=== PATIENT | female | born 1990 | race Caucasian/White ===

== ENCOUNTER 2021-03-12 11:57 | Emergency (ER) | payer OTHER, SELFPAY ==
--- NOTE | ~2021-03-12 | US_ITS ---
EXAMINATION: US OB <=14 wk fetus w TV DATE: 03/12/2021 15:57 INDICATION: Vaginal bleeding in . Abdominal pain. TECHNIQUE: Real-time transabdominal and transvaginal pelvic ultrasound was performed. COMPARISON: None. FINDINGS: TRANSABDOMINAL ULTRASOUND: The uterus measures 8.1 x 4.6 x 4.4 cm. TRANSVAGINAL ULTRASOUND: There is no visible intrauterine gestational sac. The endometrial complex me asures 6 mm in thickness. The right ovary measures 4.3 x 3.6 x 2.47 m. The left ovary measures 4.1 x 3.7 x 2.5 cm. There is trace free fluid in the pelvis. IMPRESSION: 1. No visible intrauterine gestational sac, which may be normal in early . Spontaneous abor tion and ectopic are not excluded. Serial beta hCGs are recommended. Reviewed, dictated and finalized at location A. B SPECIALIST IMPRESSION: 1. No visible intrauterine gestational sac, which may be normal in early pregn gladis. Spontaneous and ectopic are not excluded. Serial beta hCGs are recommended.
[2021-03-12 12:08] VITALS: BP 138/95; PULSE 89; RESP 18; TEMP 36.2; O2SAT 100
--- NOTE | 2021-03-12 13:59 | ED.GENADULT ---
HPI - General Adult General Chief complaint: Vaginal Bleeding Stated complaint: preg, bleeding and cramping Time Seen by Provider: 03/12/21 13:14 Source: patient Mode of arrival: ambulatory Limitations: no limitations History of Present Illness HPI narrative: Patient presents for evaluation of pelvic pain and vaginal bleeding. Symptom onset 6 days ago. She states bleeding has been very minimal, not enough to even notice on the pad or in her underwear. Really notices blood on the tissue when wiping after urination but is certain that it is coming from her vaginal vault as opposed to her urethra. She took a test today while at work which was positive. LMP around 02/05/21. She has noted urinary frequency and concentrated appearance to her urine without other urinary symptoms. No fever, chills, nausea, vomiting. Blood type verified as O positive within her chart here. Related Data Allergies Allergy/AdvReac Type Severity Reaction Status Date / Time clarithromycin Allergy Unknown Unknown Verified 03/12/21 15:03 peanut Allergy Unknown ORAL Verified 03/12/21 15:03 SWELLING AND FEELING LOOPY Review of Systems Review of Systems: CONSTITUTIONAL: Denies fever, chills, or sweats. EYES: Denies visual changes, redness, or discharge. ENT: Denies rhinorrhea, congestion, sore throat, or otalgia. CARDIOVASCULAR: Denies chest pain, palpitations, or edema. RESPIRATORY: Denies cough or dyspnea. GASTROINTESTINAL: Denies abdominal pain, nausea, vomiting, or diarrhea. GENITOURINARY: Reports vaginal bleeding. Reports urinary frequency and concentrated appearance of urine without dysuria SKIN: Denies rash or itching. MUSCULOSKELETAL: Denies back pain, joint pain, or myalgia. NEUROLOGIC: Denies headache, numbness, dizziness, or weakness. PSYCHIATRIC: Denies anxiety or depression. [facility] Past Medical History Medical History (Updated 03/12/21 @ 16:32 by Bolivar Phillips, FREDERICK, ) Asthma Eczema Surgical History Surgical History No pertinent past surgical history Family History Family History Grandparent Family history of endocrine disorder Father Suicide Social History Social History (Updated 03/12/21 @ 14:16 by Bolivar Phillips, [facility], [place] Smoking status: Light tobacco smoker Second hand tobacco smoke exposure: No Alcohol intake: current Alcohol use details: a few shots at home on irregular basis Living arrangements: with family Additional living arrangements comments: Lives with boyfriend 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 HEAD: Normocephalic, atraumatic. EYES: PERRLA and EOMI. ENT: Nares clear, no rhinorrhea or epistaxis. Mucous membranes moist. Oropharynx without tonsillar hypertrophy exudate or other lesions. Bilateral TMs pearly quevedo nonbulging NECK: Supple. No adenopathy or masses. No carotid bruits or JVD CHEST: Clear to auscultation. No respiratory distress. No wheezes rales or rhonchi HEART: Regular rate and rhythm. No murmur heard. Normal peripheral pulses. ABDOMEN: Soft, nontender, nondistended, normal active bowel sounds. GENITAL: No external genital lesions. No adnexal tenderness. No CMT. Small amount of bloody drainage in vaginal vault. I am not able to fully visualize cervical os as her vaginal bertrand collapse around speculum. EXTREMITIES: Normal range of motion. No edema. SKIN: Warm, dry, no rash. NEURO: No focal deficits. Alert and oriented x3. PSYCH: Normal mood and affect. Course Course Emergency Course: This is a 30-year-old female who pres
[2021-03-12 15:05] LABS: Add Urine Microscopic? YES; Appearance Urine Clear (Clear); Bilirubin Urine Negative (Negative); Blood Urine 1+ (Negative); Color Urine Straw (Yellow); Glucose Urine UA Negative (Negative); Ketones Urine Trace mg/dL (Negative); Leukocyte Esterase Ur Negative LEU/UL (Negative); Mucus Urine Rare /lpf; Nitrate Urine Negative (Negative); Protein Urine Negative (Negative); RBC Urine 0-2 /hpf (0-2); Squamous Epithelial Cell Urine Occasional /hpf (Few); Urobilinogen Urine Negative mg/dL (<2.0); WBC Urine 0-3 /hpf
[2021-03-12] MEDS: LACTATED RINGERS 1,000 ML 999 ML IV CONT (15:06)
[2021-03-12 15:13] LABS: Basophils Absolute Auto 0.1 K/mm3 (0.0-0.1); Basophils Percent Auto 0.6 % (0.2-1.2); Eosinophils Absolute Auto 0.1 K/mm3 (0-0.3); Eosinophils Percent Auto 1.7 % (0-4.4); Hematocrit 40.3 % (37.0-47.0); Hemoglobin 13.6 g/dL (12.0-15.0); Immature Granulocyte Absolute 0.03 K/mm3 (0.00-0.031); Immature Granulocyte Percent A 0.4 % (0-0.5); Lymphocytes Absolute Auto 2.06 K/mm3 (0.9-3.2); Lymphocytes Percent Auto 26.5 % (18.3-44.2); Mean Corpuscular HGB Conc 33.7 g/dl (32-36); Mean Platelet Volume 10.8 fl (7.4-10.4); Monocytes Absolute Auto 0.4 K/mm3 (0.1-0.6); Monocytes Percent Auto 5.1 % (2.6-8.5); Neutrophils Absolute Auto 5.1 K/mm3 (1.3-6.7); Neutrophils Percent Auto 65.7 % (45.5-73.1); Platelet Count Result 177 k/mm3 (150-375); Red Blood Count 4.53 M/mm3 (4.2-5.4); Red Cell Distribution Width 12.8 % (11.5-14.5); White Blood Count 7.8 K/mm3 (4.5-10.0)
[2021-03-12 15:17] LABS: Specific Grav Ur 1.004 (1.001-1.035)
[2021-03-12 15:23] LABS: Alanine Aminotransferase 13 U/L (4-35); Albumin Level 4.7 g/dL (3.5-5.1); Alkaline Phosphatase 60 U/L (38-126); Anion Gap 10 mmol/L (8-16); Aspartate Amino Transferase 18 U/L (14-36); Bilirubin,Total 0.6 mg/dL (0.2-1.3); Blood Urea Nitrogen 7 mg/dL (7-17); Calcium 9.2 mg/dL (8.4-10.2); Carbon Dioxide 23 mmol/L (22-30); Chloride 103 mmol/L (98-107); Estimated CRCL calculation 103 ml/min; Estimated Glomerular Filt Rate > 60; Glucose 90 mg/dL (65-110); Lipase 57 U/L (23-300); Potassium 3.7 mmol/L (3.4-5.0); Sodium 136 mmol/L (137-145)
[2021-03-12 16:42] VITALS: BP 132/85; PULSE 80; RESP 16; O2SAT 97
== END 2021-03-12 16:47 | disposition home or self-care (01) ==
PROVIDERS: Emergency Provider Nurse Practitioner; PCP Family Medicine
DX: O20.0 Threatened abortion (principal); Z3A.00 Weeks of gestation of pregnancy not specified
CPT/HCPCS: 36415; 76801; 76817; 80053; 81001; 81025; 83690; 84702; 85025; 87070; 87491; 87591; 87808; 96360; 99284; J7120

== ENCOUNTER 2023-04-05 06:25 | Emergency (ER) | payer OTHER, SELFPAY ==
[2023-04-05] VITALS (18 sets, daily range): BP systolic 95–125; BP diastolic 66–95; PULSE 62–106; RESP 7–23; TEMP 36.7–36.8; O2SAT 97–100
[2023-04-05] MEDS: ONDANSETRON INJ 4 MG/2 ML VIAL (07:03)
[2023-04-05 07:07] LABS: Basophils Percent Auto 0.2 % (0.2-1.2); Eosinophils Absolute Auto 0.1 K/mm3 (0-0.3); Hematocrit 41.7 % (37.0-47.0); Immature Granulocyte Absolute 0.05 K/mm3 (0.00-0.031); Immature Granulocyte Percent A 0.5 % (0-0.5); Lymphocytes Absolute Auto 1.32 K/mm3 (0.9-3.2); Lymphocytes Percent Auto 14.4 % (18.3-44.2); Mean Corpuscular HGB Conc 33.6 g/dl (32-36); Mean Corpuscular Hemoglobin 28.9 pg (26-34); Mean Platelet Volume 10.8 fl (7.4-10.4); Monocytes Absolute Auto 0.4 K/mm3 (0.1-0.6); Monocytes Percent Auto 4.8 % (2.6-8.5); Neutrophils Absolute Auto 7.2 K/mm3 (1.3-6.7); Neutrophils Percent Auto 79.1 % (45.5-73.1); Platelet Count Result 206 k/mm3 (150-375); Red Blood Count 4.85 M/mm3 (4.2-5.4); Red Cell Distribution Width 12.9 % (11.5-14.5); White Blood Count 9.2 K/mm3 (4.5-10.0)
[2023-04-05 07:17] LABS: Alanine Aminotransferase 20 U/L (6-35); Albumin Level 4.3 g/dL (3.5-5.1); Alkaline Phosphatase 70 U/L (38-126); Anion Gap 13 mmol/L (8-16); Aspartate Amino Transferase 21 U/L (14-36); Bilirubin,Total 0.9 mg/dL (0.2-1.3); Blood Urea Nitrogen 13 mg/dL (7-17); Calcium 9.3 mg/dL (8.4-10.2); Carbon Dioxide 15 mmol/L (22-30); Chloride 108 mmol/L (98-107); Estimated CRCL calculation 139 ml/min; Estimated Glomerular Filt Rate > 60; Glucose 98 mg/dL (65-110); Potassium 3.7 mmol/L (3.4-5.0); Sodium 136 mmol/L (137-145)
--- NOTE | 2023-04-05 07:32 | ED.GENADULT ---
HPI - General Adult General Chief complaint: Nausea/Vomiting/Diarrhea Stated complaint: vomiting, 11 weeks Time Seen by Provider: 04/05/23 06:56 History of Present Illness HPI narrative: 32-year-old female that is approximately [address] Palacios. The patient states this is her 2nd . Patient reports she did have some nausea and vomiting with her 1st . Patient states over the last few days the nausea vomiting has significantly worsened. Patient did not have any Zofran at home. Patient states when she has the emesis she does have epigastric burning the patient denies any abdominal pain. Patient denies any vaginal bleeding vaginal discharge or uterine cramping. Related Data Allergies Allergy/AdvReac Type Severity Reaction Status Date / Time clarithromycin Allergy Unknown Unknown Verified 04/05/23 06:46 peanut Allergy Unknown ORAL Verified 04/05/23 06:46 SWELLING AND FEELING LOOPY Review of Systems Review of Systems: All systems reviewed & are unremarkable except as noted in HPI and below PMFSH Past Medical History Medical History (Updated 04/05/23 @ 10:11 by Manuel Barrientos MD) Asthma Eczema Surgical History Surgical History No pertinent past surgical history Family History Family History Grandparent Family history of endocrine disorder Father Suicide Social History Social History (Updated 03/12/21 @ 14:16 by Bolivar Phillips [facility], ) Smoking status: Light tobacco smoker Second hand tobacco smoke exposure: No Alcohol intake: current Alcohol use details: a few shots at home on irregular basis Living arrangements: with family Additional living arrangements comments: Lives with boyfriend 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 HEAD: normocephalic, atraumatic. EYES: PERRLA/EOMI, conjunctivae clear. NOSE: Normal no drainage NECK: Supple. No adenopathy, no masses. RESPIRATORY: Airway patent, respirations nonlabored. Clear to auscultation bilaterally, no rales, rhonchi, wheezing. CARDIOVASCULAR: Regular rate and rhythm without murmurs rubs or gallops. ABDOMINAL: Soft, nontender, nondistended, normal bowel sounds MUSCULOSKELETAL: Moves all extremities. Strength/ROM intact, No edema, No calf tenderness. NEURO: Alert. Cranial nerves II through XII intact. Grossly intact SKIN: Warm, dry. Normal Color Course Course Emergency Course: 32-year-old female presenting to the emergency department for evaluation of persistent nausea and vomiting. Patient does feel improved with treatment. Patient is afebrile with no leukocytosis and a stable hemoglobin. No significant abnormalities on her CMP, UA did have trace leuk esterase but patient denies any pain with urination, urine culture is pending. Patient was negative for influenza RSV and for COVID. Patient was advised to follow a clear liquid diet patient was provided Zofran for nausea control at home. Patient was encouraged to have close follow-up with her OB Gyne. All questions concerns were addressed patient was well-appearing at time of discharge. Vital Signs Vital signs: Vital Signs Temperature 98.2 F 04/05/23 06:43 Pulse Rate 106 H 04/05/23 06:43 Respiratory Rate 20 04/05/23 06:43 Blood Pressure 125/95 H 04/05/23 06:43 Pulse Oximetry 98 04/05/23 06:43 Oxygen Delivery Room Air 04/05/23 06:43 Temperature 98.0 F 04/05/23 07:30 Pulse Rate 78 04/05/23 10:15 Respiratory Rate 13 04/05/23 10:15 Blood Pressure 124/66 04/05/23 10:
[2023-04-05 07:42] LABS: Influenza A QL RT-PCR Negative (Negative); Influenza B QL RT-PCR Negative (Negative); RSV RNA, RT-PCR Negative (Negative); SARS-CoV-2 RNA PCR Negative (Negative)
[2023-04-05] MEDS: SODIUM CHLORIDE 0.9% IV 1,000 ML 999 ML IV CONT ×2 (08:11→08:12)
[2023-04-05] MEDS: METOCLOPRAMIDE HCL INJ 10 MG/2 ML VIAL IV PUSH (08:11)
[2023-04-05 09:57] LABS: Appearance Urine Clear (Clear); Bacteria Urine None Seen /hpf; Bilirubin Urine 1+ (Negative); Blood Urine Negative (Negative); Color Urine Dark Yellow (Yellow); Glucose Urine UA Negative (Negative); Ketones Urine 4+ mg/dL (Negative); Leukocyte Esterase Ur Trace LEU/UL (Negative); Nitrate Urine Negative (Negative); Non Pathogenic Casts 0-2; Protein Urine 1+ mg/dL (Negative); RBC Urine 0-2 /hpf (0-2); Squamous Epithelial Cell Urine None seen /hpf (Few); WBC Urine 0-5 /hpf; pH Urine 5.5 (5.0-9.0)
[2023-04-05 10:01] LABS: Add Urine Microscopic? YES; Specific Grav Ur 1.038 (1.001-1.035)
== END 2023-04-05 10:36 | disposition home or self-care (01) ==
PROVIDERS: Emergency Provider Emergency Medicine; PCP Family Medicine
DX: O21.9 Vomiting of pregnancy, unspecified (principal); Z20.822 Contact with and (suspected) exposure to COVID-19; O99.511 Diseases of the respiratory system complicating pregnancy, first trimester; J45.909 Unspecified asthma, uncomplicated; O99.331 Smoking (tobacco) complicating pregnancy, first trimester; F17.200 Nicotine dependence, unspecified, uncomplicated; Z3A.11 11 weeks gestation of pregnancy
CPT/HCPCS: 36415; 80053; 81001; 85025; 87637; 96361; 96374; 96375; 99284; J2405; J2765; J7030

== ENCOUNTER 2023-10-15 20:25 | Observation (INO) | payer OTHER, SELFPAY ==
--- NOTE | 2023-10-16 06:49 | PM.OBTRLD ---
OB - Triage/Final Diagnosis Visit Information Date of evaluation: 10/15/23 Reason for evaluation: threatened labor Comments/Additional reasons for admission: I have assessed the risk for this patient, Rianna Huang Radhazayra, and determined that she would benefit from observation care.
== END 2023-10-15 23:54 | disposition home or self-care (01) ==
PROVIDERS: Admitting Provider Obstetrics & Gynecology; Visit Provider Obstetrics & Gynecology
DX: O47.1 False labor at or after 37 completed weeks of gestation (principal); Z3A.39 39 weeks gestation of pregnancy
CPT/HCPCS: G0378; G0379

== ENCOUNTER 2023-10-17 05:04 | Inpatient (IN) | payer OTHER, SELFPAY ==
[2023-10-17] VITALS (79 sets, daily range): BP systolic 65–140; BP diastolic 40–93; PULSE 58–176; RESP 16–18; TEMP 36.6–36.8; O2SAT 79–100; BMI 37.3
[2023-10-17 06:08] LABS: Basophils Absolute Auto 0.1 K/mm3 (0.0-0.1); Basophils Percent Auto 0.6 % (0.2-1.2); Eosinophils Absolute Auto 0.1 K/mm3 (0-0.3); Hematocrit 35.8 % (37.0-47.0); Hemoglobin 11.6 g/dL (12.0-15.0); Immature Granulocyte Absolute 0.22 K/mm3 (0.00-0.031); Immature Granulocyte Percent A 2.2 % (0-0.5); Lymphocytes Absolute Auto 1.81 K/mm3 (0.9-3.2); Lymphocytes Percent Auto 18.2 % (18.3-44.2); Mean Corpuscular HGB Conc 32.4 g/dl (32-36); Mean Corpuscular Hemoglobin 28.5 pg (26-34); Mean Platelet Volume 12.1 fl (7.4-10.4); Monocytes Absolute Auto 0.6 K/mm3 (0.1-0.6); Monocytes Percent Auto 5.9 % (2.6-8.5); Neutrophils Absolute Auto 7.2 K/mm3 (1.3-6.7); Neutrophils Percent Auto 72.1 % (45.5-73.1); Platelet Count Result 157 k/mm3 (150-375); Red Blood Count 4.07 M/mm3 (4.2-5.4); Red Cell Distribution Width 13.4 % (11.5-14.5); White Blood Count 9.9 K/mm3 (4.5-10.0)
--- NOTE | 2023-10-17 06:29 | LDADM ---
This patient, Rianna Peterson, was admitted to Labor/Delivery/Recovery 104 on 10/17/23 at 05:04. Plans for labor, pain management and were discussed with patient. Patient/family oriented to hospital policies and general routines including ID bracelet, bed and alarms, visiting hours, pain management, procedures, bathroom and other care routines, personal items, smoking policy, room service/diet and guest tray routines, security routines, and visiting hours. Patient/Family are encouraged to report perceived risks to care and to ask questions if they do not understand what they are told or what they should do. See OBIX for further documentation.
[2023-10-17] MEDS: LACTATED RINGERS 1,000 ML 125 ML IV CONT ×2 (06:40→08:46)
[2023-10-17] MEDS: OXYTOCIN 30 UNITS/NS 500 ML 30 UNITS/500 ML BAG IV CONT (06:40)
[2023-10-17 07:00] LABS: HIV 1/2 Ab P24 Ag Result Negative (Negative)
--- NOTE | 2023-10-17 08:12 | WPDOBADMIT ---
Obstetrics - Admit Note Admission Note: record reviewed. Additions to the history and/or subsequent changes in the physical findings follow. 33 y/o at 39 2/7 weeks here for elective induction of labor. GBS neg. Starting to feel some contractions. AVSS NST reactive TOCO: contractions irregularly ABD soft, nontender, gravid, vertex EXT nontender Cervix 4/80/-2 AROM with clear fluid. Vertex A: IUP at term with favorable cervix, desiring induction of labor. P: Oxytocin. Anticipate .
[2023-10-17 09:39] LABS: Amphetamine Screen Urine Negative (Negative); Barbiturate Screen Urine Negative (Negative); Benzodiazepines Screen Urine Negative (Negative); Cannabinoid Screen Urine Positive (Negative); Cocaine Screen Urine Negative (Negative); Methadone Screen Urine Negative (Negative); Opiate Screen Urine Negative (Negative); Phencyclidine Screen Urine Negative (Negative)
[2023-10-17] MEDS: CALCIUM CARBONATE (TUMS) 500 MG (200 MG ELEMENTAL) PO ×2 (10:21→21:28)
--- NOTE | 2023-10-17 12:20 | PM.OBPRVD ---
OB - Vaginal Delivery Note Procedure Delivery date: 10/17/23 Induction method: Per Pitocin Protocol Delivery augmentation: Rupture of Membranes Delivery monitor: External FHT and External Uterine Route of delivery: Episiotomy description: None Laceration Description: Periurethral (right) and Perineal - 2nd Degree Delivery repair: vicryl (3-0) Specimen: Yes (cord blood) Quantitative Blood Loss (ml): 220 Anesthesia type: Epidural Disposition: PACU Complications: None Narrative: 33 y/o at 39 2/7 weeks gestation who presented to the hospital for induction of labor. Oxytocin was administered intravenously. Amniotomy was performed with return of clear fluid. She received an epidural for pain control. Her labor progressed and her cervix dilated completely. She pushed with good effort and delivered the 's head to the perineum, followed by the body. The nose and mouth were bulb suctioned. After a delay, the cord was clamped and cut. The infant was handed off the field. Cord blood was collected. The placenta delivered spontaneously and was grossly normal in appearance. The usual 3 vessel cord was noted. A second degree midline perineal laceration was sustained. This was reapproximated using 3 0 Vicryl in the usual layered fashion. A right sided periurethral laceration was reapproximated with a single figure of eight suture of the same material. Excellent hemostasis resulted as did excellent reapproximation of the normal anatomy. Needle and instrument counts were correct. The patient was taken to recovery room in stable condition. The infant went to the nursery in stable condition. I was present and scrubbed for the entire delivery. Stanley Baby Date of : 10/17/23 Time of : 12:00 Weeks of gestation at delivery: 39 gender: Male Weight (pounds): 8 Weight (ounces): 13 presentation: vertex position: Right Occiput Anterior Placenta delivery description: Spontaneous and Normal Configuration Cord Vessel Description: 3 Vessels and Delayed Cord Clamping score one minute: 8 score five minutes: 9
--- NOTE | 2023-10-17 12:21 | PM.OBDSVD ---
DS: Admitting Diagnosis Discharge Date 10/18/23 Admitting Diagnosis IUP at 39 2/7 weeks DS: Discharge Diagnosis Discharge Diagnosis (1) (normal spontaneous vaginal delivery): Code(s): O80 - Encounter for full-term uncomplicated delivery Status: Acute OB - DS: Summary OB Procedures : None OB Procedures Intrapartum: Spontaneous Vag Delivery OB Procedures: : Rubella lg Peripartum Data Laceration Description: Periurethral (right) and Perineal - 2nd Degree Episiotomy description: None Time Spent with Patient Time attestation: Total time spent providing and/or coordinating discharge services: DS: Data Data Completed and Pending Labs on day of discharge: Labs from last 24 hours 10/17/23 10/17/23 09:08 05:27 WBC 9.9 RBC 4.07 L Hgb 11.6 L Hct 35.8 L MCV 88.0 MCH 28.5 MCHC 32.4 RDW 13.4 Plt Count 157 MPV 12.1 H Immature Gran % (Auto) 2.2 H Neut % (Auto) 72.1 Lymph % (Auto) 18.2 L Beaver % (Auto) 5.9 Eos % (Auto) 1.0 Baso % (Auto) 0.6 Lymph # (Auto) 1.81 Beaver # (Auto) 0.6 Eos # (Auto) 0.1 Baso # (Auto) 0.1 Abs Immat Gran (auto) 0.22 H Absolute Neuts (auto) 7.2 H Absolute Nucleated RBC 0.000 Nucleated RBC % 0.0 Urine Opiates Screen Negative Urine Methadone Screen Negative Ur Barbiturates Screen Negative Ur Phencyclidine Scrn Negative Ur Amphetamine Screen Negative U Benzodiazepines Scrn Negative Urine Cocaine Screen Negative U Cannabinoids Screen Positive A RPR Pending HIV 1&2 Ab/P24 Ag 4thGn Negative Blood Type O Positive Antibody Screen Negative Discharge Plan Discharge Attending physician on discharge: Raul Caal Discharging Clinician: Raul Caal Patient Disposition: Home, Self-Care Activity: pelvic rest Diet: regular Discharge Instructions: Call or return if temperature above 100.4? F, increased abdominal pain, increased vaginal bleeding or any new problems. Education: Mom and Baby Guide Given to: Mother Follow-Up: Call your delivering provider's office for an appointment to be seen in: 6 Weeks Mom and baby should come to the [facility] for the follow-up appointment. Appointment Date/Time: October 19, 2023 at 12:30 pm What to expect at your follow-up visit: Physical Assessment Call [phone] if you are unable to keep your appointment time. BREAST CARE: * Wear a snug supportive bra. * For engorgement discomfort: Breast Feeding: * Apply warm moist washcloths * Express milk as needed to relieve engorgement * Wear loose clothing * For sore nipples: * Identify correct latch-on * Apply warm moist washcloths before and after nursing * Air dry nipples after nursing * May apply Lansinoh cream to nipples PERINEAL CARE: * Until bleeding stops, use your guanakito bottle after urinating * Change your pad frequently throughout the day * You may take sitz baths several times a day (fill your bathtub with warm water and soak for 20 minutes.) Do NOT bathe in the water * No tub baths until seen by your physician - You may shower ACTIVITY: * Rest as much as possible. * Do not exercise or lift anything heavier than your baby (such as laundry or other children.) * Avoid stairs or driving as much as possible. * Do not put anything into the vagina. No douching, tampons, or sexual activity until seen by physician. NOTIFY PHYSICIAN IF YOU HAVE ANY QUESTIONS OR IF ANY OF THE FOLLOWING SYMPTOMS OCCUR: * If your perineum becomes red, swollen, or more painful than what you have experienced in the hospital. * If your vaginal bleeding becomes foul smelling. * If your vaginal bleeding becomes more heavy than a period or if your bleeding changes from pink to bright red. However, you may pass an occasional walnut-sized clot once or twice for the first week . * If you experience a sharp, shooting pain in
[2023-10-17] MEDS: OXYTOCIN 30 UNITS/NS 500 ML 30 UNITS/500 ML BAG 125 UNITS IV CONT (12:33)
[2023-10-17 13:53] LABS: Rapid Plasma Reagin Non-Reactive (NonReactive)
--- NOTE | 2023-10-17 14:08 | WPDANESEPPF ---
Anes - Initial Pre Proc Eval Procedure: labor epidural Date/Time: 10/17/23 14:08 Surgeon: Raul Caal MD Pre Op Diagnosis: labor pain Pre Op Diagnosis: IOL Patient Data Age: 33 Gender: F Height: 1.68 m Weight: 105 kg Last Vital Signs Temp 36.8 C 10/17/23 11:50 Pulse 176 H 10/17/23 12:16 Resp 16 10/17/23 11:50 BP 65/40 L 10/17/23 12:16 Pulse Ox 100 10/17/23 11:51 O2 Del Method Room Air 10/17/23 06:28 Allergies Allergy/AdvReac Type Severity Reaction Status Date / Time clarithromycin Allergy Unknown Rash Verified 10/03/23 12:37 peanut Allergy Unknown ORAL Verified 10/03/23 12:37 SWELLING AND FEELING LOOPY Home Medications Medication Instructions Recorded Confirmed Type ondansetron 4 mg disintegrating 4 mg PO Q8H PRN nausea and 04/05/23 Rx tablet vomiting #20 tabs albuterol sulfate 90 mcg/actuation 2 puff inhalation QID PRN Wheezing 10/03/23 10/03/23 History aerosol inhaler prenat.vits,oksana,qoj-owhm-vuagm 1 tablet 10/03/23 History ibuprofen 600 mg tablet 600 mg PO Q6H PRN cramps #30 tabs 10/17/23 Rx Laboratory Tests 10/17/23 10/17/23 05:27 09:08 WBC 9.9 K/mm3 (4.5-10.0) RBC 4.07 L M/mm3 (4.2-5.4) Hgb 11.6 L g/dL (12.0-15.0) Hct 35.8 L % (37.0-47.0) MCV 88.0 fl (80-100) MCH 28.5 pg (26-34) MCHC 32.4 g/dl (32-36) RDW 13.4 % (11.5-14.5) Plt Count 157 k/mm3 (150-375) MPV 12.1 H fl (7.4-10.4) Immature Gran % (Auto) 2.2 H % (0-0.5) Neut % (Auto) 72.1 % (45.5-73.1) Lymph % (Auto) 18.2 L % (18.3-44.2) Rock % (Auto) 5.9 % (2.6-8.5) Eos % (Auto) 1.0 % (0-4.4) Baso % (Auto) 0.6 % (0.2-1.2) Lymph # (Auto) 1.81 K/mm3 (0.9-3.2) Rock # (Auto) 0.6 K/mm3 (0.1-0.6) Eos # (Auto) 0.1 K/mm3 (0-0.3) Baso # (Auto) 0.1 K/mm3 (0.0-0.1) Abs Immat Gran (auto) 0.22 H K/mm3 (0.00-0.031) Absolute Neuts (auto) 7.2 H K/mm3 (1.3-6.7) Absolute Nucleated RBC 0.000 K/mm3 (0.0-0.012) Nucleated RBC % 0.0 % (0.0-0.2) Urine Opiates Screen Negative (Negative) Urine Methadone Screen Negative (Negative) Ur Barbiturates Screen Negative (Negative) Ur Phencyclidine Scrn Negative (Negative) Ur Amphetamine Screen Negative (Negative) U Benzodiazepines Scrn Negative (Negative) Urine Cocaine Screen Negative (Negative) U Cannabinoids Screen Positive A (Negative) RPR Non-reactive (NonReactive) HIV 1&2 Ab/P24 Ag 4thGn Negative (Negative) Blood Type O Positive Antibody Screen Negative Patient hx anesthesia problems: none Family hx anesthesia problems: none Results Review: All pre-operative results and documents have been reviewed as part of the pre-operative evaluation. [facility] Past Medical History Medical History (Updated 10/17/23 @ 12:22 by Raul Caal MD) Asthma Eczema Surgical History Surgical History No pertinent past surgical history Family History Family History Grandparent Family history of endocrine disorder Father Suicide Social History Social History (Updated 03/12/21 @ 14:16 by FREDERICK Bermudez, ) Smoking status: Former smoker Tobacco type: cigarettes Second hand tobacco smoke exposure: No Alcohol intake: current Alcohol use details: a few shots at home on irregular basis Substance use: never Do You Feel Safe in your Home?: Yes Lack of Transportation: No Lack of Food: Never True Current Housing: I Have Housing Concerned About Future Housing: No Difficulty Paying Gas/Electric Bills: No Difficulty Paying for Meds: No Currently Unemployed: No Education: [place]
[2023-10-17] MEDS: IBUPROFEN 600 MG TABLET PO (19:12)
[2023-10-18 04:30] VITALS: BP 120/73; PULSE 76; RESP 18; TEMP 36.9; O2SAT 100
[2023-10-18 06:47] LABS: Hematocrit 33.3 % (37.0-47.0); Hemoglobin 10.9 g/dL (12.0-15.0)
--- NOTE | 2023-10-18 07:58 | WPDANLDPN2 ---
Anes-Prog Note L&D Date/Time: 10/18/23 07:58 Comfortable throughout: labor and delivery Neuraxial method: epidural Epidural/Spinal procedure site: tender Neuro status: Neuro function grossly intact. Cardiovascular status: normal Respiratory status: normal Airway patency: baseline Mental status: baseline Post-Op hydration status: normal Vital Signs: Last Vital Signs Temp 36.9 C 10/18/23 04:30 Pulse 76 10/18/23 04:30 Resp 18 10/18/23 04:30 BP 120/73 10/18/23 04:30 Pulse Ox 100 10/18/23 04:30 O2 Del Method Room Air 10/17/23 19:15 Pain score (VAS): 3/10 I/O: Intake & Output 10/17/23 10/17/23 10/18/23 15:59 23:59 07:59 Intake Total 1000 500 Output Total 220 Balance 780 500 Post-procedural complaints: none Patient feedback: Patient satisfied with anesthetic care.
[2023-10-18 08:00] VITALS: BP 113/61; PULSE 90; RESP 16; TEMP 36.6; O2SAT 100
--- NOTE | 2023-10-18 08:32 | PM.OBPNVD ---
OB - PN: Subj Subjective Date/time seen: 10/18/23 08:32 Patient comments: no complaints and pain well controlled baby status: doing well OB - PN: Obj Data Labs 10/18/23 06:42 Labs: Laboratory Results - last 24 hr 10/17/23 10/17/23 10/18/23 05:27 09:08 06:42 Hgb 10.9 L Hct 33.3 L Urine Opiates Screen Negative Urine Methadone Screen Negative Ur Barbiturates Screen Negative Ur Phencyclidine Scrn Negative Ur Amphetamine Screen Negative U Benzodiazepines Scrn Negative Urine Cocaine Screen Negative U Cannabinoids Screen Positive A RPR Non-reactive OB - PN A/P Plan day: 1 Plan: routine care Time Spent With Patient Time: Total time spent is greater than 50% in coordination of care (as documented) at patient's floor/unit and/or counseling patient: Time with patient: less than 15 minutes Exam Const: General: cooperative, healthy appearing and comfortable Orientation/consciousness: oriented to person, oriented to place and oriented to time Resp: Effort & Inspection: normal respiratory effort Cardio: Rate: regular rate Rhythm: regular rhythm Heart sounds: S1 normal heart sound present and S2 normal heart sound present GI: Inspection: normal to inspection
[2023-10-18] MEDS: IBUPROFEN 600 MG TABLET PO (09:43)
[2023-10-18] MEDS: MULTIVIT/MIN/PREN/FOL AC/IRON TABLET 1 TAB PO (09:43)
[2023-10-18] MEDS: TETANUS,DIPHTHERIA,AC PERTUSSIS ADULT (0.5 ML) BOOSTRIX IM (09:47)
[2023-10-18] MEDS: DIBUCAINE 1% OINTMENT 30 GM TUBE 1 APPLIC TOPICAL (09:47)
--- NOTE | 2023-10-18 11:10 | PC.NURSE ---
Mother verbalizes she is able to independently latch with appropriate positioning and alignment. She denies any nipple discomfort and is responsively . Infant is currently meeting outcomes for weight, output, jaundice, blood sugar and feeding frequencies of 8-12 times in 24 hours. Mother declines any additional assistance or education at this time but will call out for a latch check today. Mother is encouraged to call for assistance if her doesn?t latch, pain with latching, questions or concerns. Mother voiced understanding of information shared along with the mom/baby guide for an additional resource. Reported to the Primary RN.
[2023-10-18] MEDS: MEASLES,MUMPS,RUBELLA VACCINE 0.5 ML VIAL SUB-Q (14:30)
--- NOTE | 2023-10-18 15:30 | PC.NURSE ---
Observed patient . Infant was sleepy but easy to arouse. Mother latched infant to the right breast in cradle hold. was suckling consistently and mother had no pain with the latch. Mother is comfortable to go home . She doesn't have any additional needs or questions at this time. She has the mom baby guide for reference at home. Reported to Primary RN.
[2023-10-19 12:58] VITALS: BP 112/65; PULSE 97; RESP 18; TEMP 37.3; O2SAT 100
== END 2023-10-18 18:00 | disposition home or self-care (01) | DRG 560 ==
LOC: ANHLDR 12:22 → ANHOB2 10-18 14:21 → ANHLDR 10-21 08:51 → ANHOB2 10-21 08:51
PROVIDERS: Admitting Provider Obstetrics & Gynecology; Visit Provider Obstetrics & Gynecology
DX: O70.1 Second degree perineal laceration during delivery (principal); O71.82 Other specified trauma to perineum and vulva; Z3A.39 39 weeks gestation of pregnancy; Z37.0 Single live birth
CPT/HCPCS: 36415; 80307; 85014; 85018; 85025; 86592; 86703; 86850; 86900; 86901; 90710; 90715; A9270; G0432; J2590; J2795; J7120